=== PATIENT | male | born 1985 ===

== ENCOUNTER 2019-12-12 16:59 | Emergency (ER) | payer BC ==
[~2019-12-12] VITALS: Ht 190.5 cm; Wt 156.8 kg
[2019-12-12] MEDS ORDERED: HYZAAR 100-12.1 EACH PO (17:17)
[2019-12-12] MEDS ORDERED: CELEBREX 200MG200 MG PO (17:19)
[2019-12-12] MEDS ORDERED: TERBINAFINE250 MG PO (17:19)
[2019-12-12 18:13] VITALS: BP 138/72
== END 2019-12-12 18:14 | disposition home or self-care (01) ==
LOC: ED 16:59
DX: S91.115A Laceration without foreign body of left lesser toe(s) without damage to nail, initial encounter (principal); W45.8XXA Other foreign body or object entering through skin, initial encounter
CPT/HCPCS: 90715

== ENCOUNTER → 2019-12-19 | Outpatient (CLI) | payer BC ==
[2019-12-12 18:13] VITALS: BP 138/72
[~2019-12-19] MED LIST: CELEBREX 200MG200 MG PO; HYZAAR 100-12.1 EACH PO; TERBINAFINE250 MG PO
== END ==
LOC: AMSURD 16:48
DX: Z48.02 Encounter for removal of sutures (principal)